=== PATIENT | female | born 1980 | race Caucasian/White ===

== ENCOUNTER 2019-08-27 15:27 | Outpatient (CLI) | payer OTHER ==
--- NOTE | 2019-08-27 16:11 | RAD ---
PA AND LATERAL OF THE CHEST: 08/27/19 INDICATION: Shortness of breath for one year. COMPARISON: Prior exam dated 10/14/15. FINDINGS: No consolidation is evident. The heart size is normal. No pleural effusion is evident. No pneumothora x is noted. No acute osseous abnormality is noted. IMPRESSION: No acute cardiopulmonary abnormality. POS: [facility]
== END 2019-08-27 15:28 | disposition home or self-care (01) ==
LOC: BICRAD 15:27
PROVIDERS: ATTEND Family Medicine
DX: R06.02 Shortness of breath (principal)
CPT/HCPCS: 71046